=== PATIENT | female | born 1965 ===

== ENCOUNTER 2024-02-19 04:38 | Day surgery (SDC) | payer OTHER ==
[2024-02-18 08:14] VITALS: BMI 28.1
[2024-02-19 10:56] VITALS: TEMP 97.8
[2024-02-19 11:21] VITALS: RESP 18
[2024-02-19 11:24] VITALS: BP 114/57; PULSE 60
== END 2024-02-19 11:47 | disposition home or self-care (01) ==
LOC: JASU-ENDO 04:38
PROVIDERS: ATTEND Internal Medicine Gastroenterology
PROC: 0DB68ZX Excision of Stomach, Via Natural or Artificial Opening Endoscopic, Diagnostic (ICD-10-PCS; 2024-02-19)
PROC: 0DJD8ZZ Inspection of Lower Intestinal Tract, Via Natural or Artificial Opening Endoscopic (ICD-10-PCS; principal; 2024-02-19 10:30)
DX: Z12.11 Encounter for screening for malignant neoplasm of colon (principal); K44.9 Diaphragmatic hernia without obstruction or gangrene; Z87.19 Personal history of other diseases of the digestive system
CPT/HCPCS: 88305-TC; 88342-TC